=== PATIENT | male | born 1955 | race Caucasian/White ===

== ENCOUNTER 2020-09-11 15:10 | Emergency (ER) | payer OTHER ==
[2020-09-11] MEDS ORDERED: INDOMETHACIN 25 MG CAPSULE PO STA (15:59)
--- NOTE | 2020-09-11 16:00 | ED Physician Documentation ---
PD HPI LOWER EXT INJURY - Stated complaint Stated Complaint: RIGHT ANKLE PX & SWELLING - Chief complaint Chief Complaint: Ext Problem - History obtained from History obtained from: Patient - Additional information Additional information: 65-year-old gentleman with history of gout presents with 2 days atraumatic right ankle pain and swelling and has been able to walk since yesterday. Took some colchicine which was ineffective. Has not tried anything else. He is not diabetic. Denies fevers or chills. Review of Systems Constitutional: denies: Fever, Chills Ears: reports: Reviewed and negative Nose: reports: Reviewed and negative Throat: reports: Reviewed and negative Cardiac: reports: Reviewed and negative PD PAST MEDICAL HISTORY - Past Medical History Cardiovascular: Hypertension, High cholesterol GI: GERD Musculoskeletal: Chronic back pain - Past Surgical History Past Surgical History: Yes Ortho: Other - Present Medications Home Medications: Ambulatory Orders Medication Instructions Recorded Confirmed Amlodipine Besylate 10 mg PO DAILY 01/07/14 03/25/15 Aspirin [Aspir 81] 81 mg PO DAILY 01/07/14 03/25/15 Lisinopril 20 mg PO DAILY 01/07/14 03/25/15 Omeprazole [PriLOSEC] 20 mg PO DAILY 01/07/14 03/25/15 atenoloL [Atenolol] 25 mg PO DAILY 01/07/14 03/25/15 Simvastatin 20 mg PO DAILY 03/25/15 03/25/15 HYDROcod/ACETAM 5/325 [[place] 5/325] 1 - 2 tab PO Q6H PRN #15 tablet 09/11/20 Indomethacin [Indocin] 25 mg PO BIDWM #10 09/11/20 predniSONE [Deltasone] 20 mg PO [id number] #21 tab 09/11/20 - Allergies Allergies/Adverse Reactions: Allergies Allergy/AdvReac Type Severity Reaction Status Date / Time No Known Drug Allergies Allergy Verified 09/11/20 15:21 - Social History Does the pt smoke?: No Smoking Status: Never smoker Does the pt drink ETOH?: No Does the pt have substance abuse?: No - Immunizations Immunizations are current?: Yes PD ED PE NORMAL - Vitals Vital signs reviewed: Yes - General General: Alert and oriented X 3, No acute distress - Extremities Extremities: Other (Right ankle is quite swollen, not tender, but pain with ex tension and flexion more so than inversion/eversion. No redness or warmth.) - Neuro Neuro: Alert and oriented X 3, Normal speech Results - Vitals Vitals: Vital Signs - 24 hr 09/11/20 09/11/20 15:21 17:11 Temperature 36.6 C 37.4 C Heart Rate 85 65 Respiratory 16 20 Rate Blood Pressure 124/76 127/74 O2 Saturation 98 96 Oxygen O2 Source Room air - Labs Labs: Laboratory Tests 09/11/20 09/11/20 09/11/20 16:40 16:40 16:40 WBC 11.9 H RBC 4.44 L Hgb 13.5 L Hct 40.0 L MCV 90.1 MCH 30.4 MCHC 33.8 RDW 13.0 Plt Count 205 MPV 9.4 Neut # (Auto) 9.0 H Lymph # (Auto) 2.0 Schleicher # (Auto) 0.8 Eos # (Auto) 0.0 Baso # (Auto) 0.0 Absolute Nucleated RBC 0.00 Nucleated RBC % 0.0 ESR 19 Sodium 136 Potassium 4.7 Chloride 102 Carbon Dioxide 23 Anion Gap 11.0 BUN 19 Creatinine 1.1 Estimated GFR (MDRD) 67 L Glucose 111 H Uric Acid 7.6 H Calcium 9.5 C-Reactive Protein 3.2 H PD MEDICAL DECISION MAKING - ED course ED course: 65-year-old gentleman with what appears to be a gout flare in the right ankle. Clinically no evidence of infection, and his CRP of only 3.2 would suggest against infection. He is treated symptomatically and given signs and symptoms to watch out for. Departure - Departure Disposition: 01 Home, Self Care Clinical Impression: Gout Qualifiers: Gout site: ankle Gout etiology: unspecified cause Chronicity: acute Laterality: right Qualified Code(s): M10.9 - Gout, unspecified Condition: Good Record reviewed to determine appropriate education?: Yes Instructions: ED Arthritis Gout, ED Diet Gout Prescriptions: predniSONE [Deltasone] 20 mg PO [id number] #21 tab Indomethacin [Indocin] 25 mg PO BIDWM #10 HYDROcod/ACETAM 5/325 [[place] 5/325] 1 - 2 tab PO Q6H PRN #15 tablet PRN Reason: Pain Comments: Return if you run a fever, worsen, or if the ankle gets red. Follow-up with your physician. Discuss starting allopurinol in 6 to 8 weeks after the flare has subsided. Do not drink or drive while taking narcotic pain medication. Note that many narcotic pain relievers also contain Tylenol/acetaminophen. Please ensure that your total dose of acetaminophen from all sources does not exceed 3 g (3000 mg) per day. You may get constipated while on this medication. Take a stool softener such as Colace twice a day while you are on it. Also add an oogn-rxk-vmlzcaa laxative such as senna or MiraLAX on any day that you do not have a bowel movement. If you received a narcotic pain medication or sedative while in the emergency department, do not drive for the next 24 hours. Discharge Date/Time: 09/11/20 17:24
--- OUTSIDE RECORDS SUMMARY | 2020-09-11 16:05 | EXTERNAL MEDICAL SUMMARY RPT | Continuity of Care Document ---
:1955 Demographics Phone Unavailable Preferred Language Unknown Marital Status Unknown Gnosticism Affiliation Unknown Race Unknown Ethnic Group Unknown Author Organization [facility] Address [address] [id number] Phone Social History date description facility [id number]
--- NOTE | 2020-09-11 16:16 | XRAY Report ---
PROCEDURE: Ankle 3 View RT INDICATIONS: ankle pain TECHNIQUE: 3 views of the ankle were acquired. COMPARISON: None FINDINGS: Bones: No fractures or dislocations. Ankle mortise is normally aligned. No suspicious bony lesions . Soft tissues: No tibiotalar joint effusion. Achilles tendon appears normal. IMPRESSION: No acute fracture. No osseous lesion. If symptoms and/or clinical suspicion for patholog y continue, further assessment with repeat plain films, or advanced imaging (e.g., CT, MRI, or bone s can) is recommended for further assessment. Reviewed by: Cameron Mercedes MD on 09/11/2020 4:15 PM PDT Approved by: Cameron Mercedes MD on 09/11/2020 4:15 PM PDT Station ID: [id number]
[2020-09-11 16:44] LABS: BASOPHILS % (AUTO) 0.1 %; HGB - HEMOGLOBIN 13.5 g/dL (14.0-18.0); LYMPHOCYTES % (AUTO) 17.1 %; MEAN CORPUSCULAR HEMOGLOBIN 30.4 pg (27.0-31.0); MEAN CORPUSCULAR HGB CONC 33.8 g/dL (32.0-36.0); MEAN CORPUSCULAR VOLUME 90.1 fL (80.0-94.0); MEAN PLATELET VOLUME 9.4 fL (7.4-11.4); MONOCYTES # (AUTO) 0.8 10^3/uL (0.0-1.0); MONOCYTES % (AUTO) 7.1 %; NEUTROPHILS % (AUTO) 75.4 %; PLT - PLATELET COUNT 205 10^3/uL (130-450); RED BLOOD COUNT 4.44 10^6/uL (4.70-6.10); WHITE BLOOD COUNT 11.9 x10^3/uL (4.8-10.8)
[2020-09-11 17:03] LABS: CALCIUM 9.5 mg/dL (8.5-10.3); CREATININE 1.1 mg/dL (0.6-1.2); CRP - C-REACTIVE PROTEIN 3.2 mg/dL (0-1.0); POTASSIUM 4.7 mmol/L (3.5-5.0); URIC ACID 7.6 mg/dL (2.6-7.2)
[2020-09-11 17:12] VITALS: BP 127/74
== END 2020-09-11 17:24 | disposition home or self-care (01) ==
LOC: ED 15:10
DX: M10.9 Gout, unspecified (principal)
CPT/HCPCS: 36415; 73610; 80048; 84550; 85025; 85651; 86140; 99283; 99284; A9270

== ENCOUNTER 2023-05-08 15:00 | Emergency (ER) | payer MEDICARE, OTHER ==
[2023-05-08 15:16] VITALS: BP 147/81; O2SAT 96
[2023-05-08] MEDS ORDERED: HYDROcod/ACETAM 5/325 MG TABLET PO STA (15:40)
--- NOTE | 2023-05-08 15:40 | ED Physician Documentation ---
PD HPI LOWER EXT INJURY - Stated complaint Stated Complaint: RT ANKLE PX - Chief complaint Chief Complaint: Ext Problem - History obtained from History obtained from: Patient - Additional information Additional information: 68-year-old gentleman with history of gout developed pain in the right first MTP 2 weeks ago and now is more in the ankle. He went to urgent care where it was reported that there was a concern for DVT but this is not consistent with the history and physical. He has had this before and was treated with medications with relief including from this ED 2 years ago. He denies fevers. PD PAST MEDICAL HISTORY - Past Medical History Past Medical History: Yes Cardiovascular: Hypertension, High cholesterol GI: GERD Musculoskeletal: Chronic back pain - Past Surgical History Past Surgical History: Yes Ortho: Other - Present Medications Home Medications: Ambulatory Orders Medication Instructions Recorded Confirmed Amlodipine Besylate 10 mg PO DAILY 01/07/14 03/25/15 Aspirin [Aspir 81] 81 mg PO DAILY 01/07/14 03/25/15 Lisinopril 20 mg PO DAILY 01/07/14 03/25/15 Omeprazole [PriLOSEC] 20 mg PO DAILY 01/07/14 03/25/15 atenoloL [Atenolol] 25 mg PO DAILY 01/07/14 03/25/15 Simvastatin 20 mg PO DAILY 03/25/15 03/25/15 HYDROcod/ACETAM 5/325 [[place] 5/325] 1 - 2 tab PO Q6H PRN #15 tablet 09/11/20 Indomethacin [Indocin] 25 mg PO BIDWM #10 09/11/20 predniSONE [Deltasone] 20 mg PO [id number] #21 tab 09/11/20 Colchicine [Colcrys] 0.6 mg PO Q2H #3 tablet 05/08/23 HYDROcod/ACETAM 5/325 [[place] 5/325] 1 - 2 tab PO Q6H PRN #15 tablet 05/08/23 predniSONE [Deltasone] 20 mg PO [id number] #21 tab 05/08/23 - Allergies Allergies/Adverse Reactions: Allergies Allergy/AdvReac Type Severity Reaction Status Date / Time No Known Drug Allergies Allergy Verified 05/08/23 15:09 - Social History Does the pt smoke?: No Smoking Status: Never smoker Does the pt drink ETOH?: No Does the pt have substance abuse?: No - Immunizations Immunizations are current?: Yes PD ED PE NORMAL - Vitals Vital signs reviewed: Yes - General General: Alert and oriented X 3, No acute distress - Extremities Extremities: Other (There is some redness around the right first MTP but that has not tender at this point. He does have exquisite tenderness with motion of the right ankle and an effusion but without warmth or redness.) - Neuro Neuro: Alert and oriented X 3, Normal speech Results - Vitals Vitals: Vital Signs - 24 hr 05/08/23 15:09 Temperature 36.8 C Heart Rate 88 Respiratory 18 Rate Blood Pressure 147/81 H O2 Saturation 96 Oxygen O2 Source Room air PD Medical Decision Making - ED course ED course: He was sent here from the walk-in clinic with concern for DVT but he has no calf or leg pain, it's all about the ankle. This is consistent with a repeat gout flare and he request the same medications he got previously. Departure - Departure Disposition: Home, Self Care Clinical Impression: Gout of ankle Condition: Good Record reviewed to determine appropriate education?: Yes Instructions: ED Arthritis Gout Prescriptions: Colchicine [Colcrys] 0.6 mg PO Q2H #3 tablet predniSONE [Deltasone] 20 mg PO [id number] #21 tab HYDROcod/ACETAM 5/325 [[place] 5/325] 1 - 2 tab PO Q6H PRN #15 tablet PRN Reason: Pain Comments: I sent your prescription electronically to the [facility] in [place]. Return if you develop worsening symptoms or fever. Follow-up with your primary care physician, next available appointment. I am prescribing a short course of narcotic pain medication for you. These are potentially dangerous and addictive medications that should be used carefully. These medications may constipate you. Take an upng-gvx-mdptjpr stool softener (docusate) twice daily with plenty of water while taking these medications. If you go 24 hours without a bowel movement, take onpt-iuj-vzvswlo miralax, per package instructions. Do not drink or drive while taking these medications. If you received narcotic or sedating medications while in the emergency department, do not drive for 24 hours. Store this medication in a safe, secure place and out of reach of children. It is a violation of federal law to give or sell this medication to another person or to use in a manner other than prescribed. The ED will not refill narcotic prescriptions, including prescriptions lost or stolen. To dispose of unwanted medications: 1. [facility] provides a drop box for medication in pill form only (no liquids) 8:00 am to 4:30 p.m. Friday-Friday in the lobby of the [facility] [place], [address] Empty pills into ziplock bag before disposal. Call [phone] for information. 2.[employer] is a free service available to all [facility] residents. Go to [email or web address] Note that many narcotic pain relievers also contain Tylenol/acetaminophen. Please ensure that your total dose of acetaminophen from all sources does not exceed 3 g (3000 mg) per day. Forms: PCP List
== END 2023-05-08 16:00 | disposition home or self-care (01) ==
LOC: ED 15:00
DX: M10.9 Gout, unspecified (principal); I10 Essential (primary) hypertension
CPT/HCPCS: 99283; 99284; A9270